=== PATIENT | female | born 1930 | race Caucasian/White ===

== ENCOUNTER → 2016-10-08 | Outpatient (CLI) | payer OTHER | LOC: FIMAGING 11:00 | PROVIDERS: ATTEND Internal Medicine Gastroenterology | DX: M79.89 Other specified soft tissue disorders (principal); M79.605 Pain in left leg ==

== ENCOUNTER 2017-01-14 16:07 | Emergency (ER) | payer OTHER ==
[2017-01-14 16:21] VITALS: RESP 16
--- NOTE | 2017-01-14 17:23 | EDPHY ---
H & P Time Seen by Provider: 01/14/17 16:27 HPI/ROS: Chief complaint. Fall HPI. 86-year-old female trip and fall at her residence today. She injured her right knee. She has had right knee replacement 1 and half years ago. She has had continued pain for that right knee. She saw the orthopedist 2 days ago for chronic knee pain. She then fell this morning. Did not strike her head or lose consciousness. No neck pain or upper back pain. No chest discomfort or trouble breathing. No abdominal pain. No injury to the left leg or either arm. She does have some low back pain as well. ROS Constitutional. no fever/chills, no weakness Eyes. no problems with vision ENT. no sore throat, no nasal drainage Cardiovascular. no chest pain Respiratory. no shortness of breath, no cough Abdominal. no abdominal pain, no nausea/vomiting, no diarrhea . no problems urinating MS. low back pain and right knee pain Skin. no rash Lymph. no swollen glands Neuro. no headache, no dizziness, no difficulty walking or with speech Past Medical/Surgical History: Past medical history is significant for hypertension, bilateral knee replacements Social History: , nonsmoker, no alcohol Smoking Status: Never smoked Physical Exam: General Appearance: Alert well-developed female mild distress vital signs are stable Eyes: Pupils equal and round no pallor or injection. ENT, Mouth: Mucous membranes are moist. Respiratory: There are no retractions, lungs are clear to auscultation. Cardiovascular: Regular rate and rhythm. Gastrointestinal: Abdomen is soft and nontender, no masses, bowel sounds normal. Neurological: Awake and alert, sensory and motor exams grossly normal. Skin: Warm and dry, no rashes. Musculoskeletal: Tender in the lumbar spine area without evidence of trauma Extremities hematoma over the anterior right knee Psychiatric: Patient is oriented X 3, there is no agitation. Constitutional: Initial Vital Signs Temperature (C) 36.2 C 01/14/17 16:16 Heart Rate 90 01/14/17 16:16 Respiratory Rate 16 01/14/17 16:16 Blood Pressure 181/98 H 01/14/17 16:16 O2 Sat (%) 91 L 01/14/17 16:16 O2 Delivery Mode Room Air Allergies/Adverse Reactions: Penicillins Allergy (Verified 01/14/17 16:21) Home Medications: Medication Instructions Recorded Lovastatin 01/14/17 Medical Decision Making - Diagnostics Imaging Results: Imaging Impressions Knee X-Ray 01/14/17 17:23 Impression: No acute osseous findings. Lumbar Spine X-Ray 01/14/17 17:23 Impression: No acute findings in the lumbar spine. X-ray right knee shows stable hardware And no fracture dislocation X-ray lumbar spine shows hardware and minimal height reduction at L1. Procedures: Tylenol by mouth ED Course/Re-evaluation: Re-evaluation 6:20 p.m.--patient is stable. Patient, her , and I discussed imaging study results, treatment plan including criteria for return importance of follow-up and further evaluation. They expressed understanding and agreement Jaylen bandage applied to the right knee. I do not think the patient will do well with a knee immobilizer Differential Diagnosis: I considered fracture, dislocation of the knee as well as patella fracture, disruption of hardware. I considered compression fracture of the lumbar spine - Data Points Medications Given: Discontinued Medications Acetaminophen (Tylenol) 1,000 mg PO EDNOW ONE Stop: 01/14/17 17:37 Last Admin: 01/14/17 17:46 Dose: 1,000 mg Departure - Departure Disposition: Home, Routine, Self-Care Clinical Impression: Multiple contusions Condition: Good Instructions: Contusion in Adults (ED) Additional Instructions: Ice to sore knee next 24-48 hours. Jaylen bandage on for 24 hours and to help resist swelling. Tylenol 650 mg every 6 hours as needed for discomfort. Return for worsening symptoms. Re-evaluation by Dr. Almodovar in 2 days Referrals: Adonay Boyd MD [Primary Care Provider] - As per Instructions Raul Almodovar [Doctor of Osteopathy] - 2-3 days, call for appt.
[2017-01-14] MEDS ORDERED: ACETAMINOPHEN 500 MG TAB PO ONE (17:36)
[2017-01-14 18:38] VITALS: TEMP 98.4
[2017-01-14] MEDS ORDERED: LABETALOL HCL 100 MG TAB PO ONE (19:19)
[2017-01-14 20:02] VITALS: BP 163/79; PULSE 68; O2SAT 93
== END 2017-01-14 20:18 | disposition home or self-care (01) ==
LOC: EDUNIT#
DX: S80.01XA Contusion of right knee, initial encounter (principal); I10 Essential (primary) hypertension; W01.0XXA Fall on same level from slipping, tripping and stumbling without subsequent striking against object, initial encounter; Y92.099 Unspecified place in other non-institutional residence as the place of occurrence of the external cause